=== PATIENT | female | born 1970 ===

== ENCOUNTER 2017-01-28 06:59 | Day surgery (SDC) | payer OTHER ==
[2017-01-27 12:22] VITALS: BMI 24.0
[2017-01-28] MEDS ORDERED: DEXAMETHASONE SOD PHOSPHATE 4 MG/1 ML VIAL ONE (08:06)
[2017-01-28] MEDS ORDERED: PROPOFOL 20 ML ONE (08:06)
[2017-01-28] MEDS ORDERED: LIDOCAINE HCL/PF 2% SDV 5ML VIAL ONE (08:06)
[2017-01-28] MEDS ORDERED: KETOROLAC TROMETHAMINE 30 MG/1 ML VIAL ONE (08:06)
[2017-01-28] MEDS ORDERED: MIDAZOLAM HCL 2 MG/2 ML SINGLE DOSE VIAL ONE (08:06)
--- NOTE | 2017-01-28 08:13 | HP ---
Admitting History and Physical - Admission Chief Complaint: Endometrial polyp History of Present Illness: 46 yo Para 1, with endometrial polyp is Pre op for D&C Hysteroscopy. History Source: Patient Limitations to Obtaining History: No Limitations - Past Medical History ...LMP: 01/24/17 ...: No ...Para: 1 - Past Surgical History Past Surgical History: Yes: None - Smoking History Smoking history: Never smoked Have you smoked in the past 12 months: No - Alcohol/Substance Use Hx Alcohol Use: Yes (OCC) - Social History Usual Living Arrangement: Yes: Alone History of Recent Travel: No Home Medications - Allergies Allergies/Adverse Reactions: Allergies Allergy/AdvReac Type Severity Reaction Status Date / Time No Known Drug Allergies Allergy Verified 01/28/17 07:28 - Home Medications Home Medications: Ambulatory Orders NK [No Known Home Medication] 01/27/17 Family Disease History - Family Disease History Family History: Unremarkable Review of Systems - Review of Systems Constitutional: reports: No Symptoms Eyes: reports: No Symptoms HENT: reports: No Symptoms Neck: reports: No Symptoms Cardiovascular: reports: No Symptoms Respiratory: reports: No Symptoms Gastrointestinal: reports: No Symptoms Genitourinary: reports: No Symptoms Breasts: reports: No Symptoms Reported Musculoskeletal: reports: No Symptoms Integumentary: reports: No Symptoms Neurological: reports: No Symptoms Endocrine: reports: No Symptoms Hematology/Lymphatic: reports: No Symptoms Psychiatric: reports: No Symptoms Pain Intensity: 0 Physical Examination Vital Signs: Vital Signs Temperature 97.7 F 01/28/17 07:25 Pulse Rate 105 H 01/28/17 07:25 Respiratory Rate 18 01/28/17 07:25 Blood Pressure 154/98 01/28/17 07:25 O2 Sat by Pulse Oximetry (%) 100 01/28/17 07:26 Constitutional: Yes: Well Nourished Eyes: Yes: Conjunctiva Clear HENT: Yes: Atraumatic Neck: Yes: Supple, Trachea Midline Cardiovascular: Yes: Regular Rate and Rhythm Respiratory: Yes: Regular, CTA Bilaterally Gastrointestinal: Yes: Normal Bowel Sounds Neurological: Yes: Alert, Oriented Psychiatric: Yes: Alert, Oriented Problem List - Problems (1) Endometrial polyp Code(s): N84.0 - POLYP OF CORPUS UTERI Assessment/Plan Endometrial polyp Pre op for D^&C Hysteroscopy Consent signed Anesthesia to see patient
--- NOTE | 2017-01-28 08:14 | OP ---
Operative Note - Note: Operative Date: 01/28/17 Pre-Operative Diagnosis: Endometrial polyp Operation: D&C Hysteroscopy Post-Operative Diagnosis: Same as Pre-op Surgeon: Elsy Landa Specimens Removed: Polyp
[2017-01-28] MEDS ORDERED: DESFLURANE GAS 240 ML BOTTLE IH ONE (08:29)
[2017-01-28] MEDS ORDERED: oxyCODONE HCL 5 MG TABLET PO PRN (08:57)
[2017-01-28] MEDS ORDERED: ONDANSETRON 4 MG/2 ML VIAL IVPUSH PRN (08:57)
[2017-01-28] MEDS ORDERED: PROMETHAZINE HCL 25 MG/1 ML VIAL IVPUSH PRN (08:57)
[2017-01-28 10:17] VITALS: TEMP 98.2
--- NOTE | 2017-01-28 12:37 | OP ---
DATE OF OPERATION: 01/28/2017 PROCEDURE: Dilatation and curettage. Hysteroscopy PREOPERATIVE DIAGNOSIS: Endometrial polyp POSTOPERATVE DIAGNOSIS: Endometrial polyp SURGEON: Elsy Landa MD ANESTHESIA: General COMPLICATIONS: None ESTIMATED BLOOD LOSS: 10 mL PROCEDURE: Patient was taken to the operating room where general anesthesia was administered. Patient was then placed in lithotomy position. She was then prepped and draped in proper sterile fashion. A weighted speculum was placed in the vagina. The anterior lip of the cervix was grasped with a single-tooth tenaculum, and a 5-mm hysteroscope was then gently introduced into the uterine cavity. A large polyp was noted in the cavity, and the ostia were not visualized. When the hysteroscope was removed, using the polyp forceps the polyp was removed after several attempts, and hemostasis was obtained. Then the instruments were removed, and the patient was taken out of lithotomy position. She was taken to PACU in stable condition. PATHOLOGY: Endometrial polyp. Darío MASTERSON/[id number]
[2017-01-28 13:26] VITALS: BP 132/80; PULSE 92
--- NOTE | 2017-01-31 15:27 | PATH ---
Surgical Pathology Report Patient Name: BUZZ ROSS [facility]. Rec. #: [id number] /Age/Gender: 1970 (Age: 46) / F Account: [id number] Location: [facility] SURGICAL Taken: 01/28/2017 Received: 01/28/2017 Reported: 01/31/2017 Physicians: Elsy Landa M.D. Specimen(s) Received ENDOMETRIAL POLYP Clinical History Endometrial polyp Final Diagnosis ENDOMETRIAL POLYP, POLYPECTOMY: ADENOMYOMA. BACKGROUND FRAGMENTS OF INACTIVE ENDOMETRIUM WITH FOCAL STROMAL BREAKDOWN CHANGE AND FRAGMENTS OF BENIGN ENDOCERVICAL TISSUE WAS SQUAMOUS METAPLASIA. Electronically Signed Alexis Pastor M.D. Gross Description Received in formalin, labeled "endometrial polyp" is a 3.6 x 2.8 x 1.7 cm damian, polypoid portion of soft tissue. Also received within the same container is a 3.1 x 3.0 x 0.8 cm aggregate of dmaian, irregular to polypoid soft tissue fragments. The specimen is entirely submitted in 9 cassettes as follows: 2-6-[id number] and sequentially submitted polyp; 4-7-[id number] received fragments. 01/28/2017 saudi01/28/2017
== END 2017-01-28 14:12 | disposition home or self-care (01) ==
LOC: JASU-SURG 06:59
PROVIDERS: ATTEND Obstetrics & Gynecology
PROC: 0UB98ZX Excision of Uterus, Via Natural or Artificial Opening Endoscopic, Diagnostic (ICD-10-PCS; principal; 2017-01-28 08:00)
PROC: 0UDB8ZX Extraction of Endometrium, Via Natural or Artificial Opening Endoscopic, Diagnostic (ICD-10-PCS; 2017-01-28 08:00)
DX: N84.0 Polyp of corpus uteri (principal)
CPT/HCPCS: 84703; 88305-TC; 94760